=== PATIENT | female | born 1985 | race Caucasian/White ===

== ENCOUNTER 2018-07-24 09:53 | Inpatient (IN) | payer OTHER ==
[~2018-07-24] VITALS: Ht 175.3 cm; Wt 76.2 kg
[2018-07-24] VITALS (9 sets, daily range): BP systolic 85–113; BP diastolic 52–65
[2018-07-24] MEDS ORDERED: IV NORMAL SALINE 1,000ML 1,000 ML IV ONE ×3 (10:15→12:45)
[2018-07-24] MEDS ORDERED: ALBU8.5H8 INH (10:27)
[2018-07-24] MEDS ORDERED: CITA10TA8 PO (10:27)
[2018-07-24] MEDS ORDERED: MONT10TA9 PO (10:27)
[2018-07-24] MEDS ORDERED: FLUT1DIS IH (10:27)
--- NOTE | 2018-07-24 10:34 | RAD ---
CHEST PA LATERAL Clinical indications: Shortness of air, COUGH COMPARISON: None available. Findings: There is a right middle lobe lung infiltrate. No pleural effusion or pulmonary edema or lung mass or pneumothorax is seen. The heart size, pulmonary vasculature, mediastinum and both dorian are unremarkable. The osseous structures appear intact. Impression: Right middle lobe lung infiltrate. Electronically signed by: Pop Tracy MD (07/24/2018 10:30 AM) [facility]
--- NOTE | 2018-07-24 10:38 | PHYS DOC ---
Adult General Chief Complaint Chief Complaint: OTHER COMPLAINTS HPI HPI 33-year-old female presents with cough, dizziness, and near syncope. Patient states that after she dropped her kids off for school she was driving home began to feel dizzy and as though she might pass out. She states that she saw some black spots, but did not pass out. She stated having a "low-grade" fever at home. No fever in the ED. She has had a cough for several days and is concerned about having bronchitis. Patient has a history of asthma for which she takes preventative medications daily such as Advair and Singulair. She has not been using her albuterol because she has not felt like she needed it. Her kids have had respiratory illnesses at home. The patient has heightened concern because she has immune deficiencies. The extent and type of deficiency has not been fully determined yet. She is supposed to see a specialist at [facility] in August. She denies nausea, vomiting or diarrhea. Review of Systems Review of Systems Constitutional: Fever [] Eyes: Denies change in visual acuity, redness, or eye pain [] HENT: Denies nasal congestion or sore throat [] Respiratory: Cough [] Cardiovascular: No additional information not addressed in HPI [] GI: abdominal pain[] : Denies dysuria or hematuria [] Musculoskeletal: Denies back pain or joint pain [] Integument: Denies rash or skin lesions [] Neurologic: Denies headache, focal weakness or sensory changes. Dizziness [] Endocrine: Denies polyuria or polydipsia [] All other systems were reviewed and found to be within normal limits, except as documented in this note. Current Medications Current Medications Current Medications Medications (Trade) Dose Ordered Sig/Leander Start Time Stop Time Status Last Admin Dose Admin Sodium Chloride 1,000 ml @ 1,000 mls/hr 1X ONCE 07/24/18 10:15 07/24/18 11:14 UNV Allergies Allergies Allergies Coded Allergies Type Severity Reaction Last Updated Verified Sulfa (Sulfonamide Antibiotics) Allergy Unknown 07/24/18 Yes azithromycin Allergy Unknown 07/24/18 Yes cefaclor Allergy Unknown 07/24/18 Yes erythromycin base Allergy Unknown 07/24/18 Yes sulfisoxazole Allergy Unknown 07/24/18 Yes Physical Exam Physical Exam Constitutional: Well developed, well nourished, mild distress, non-toxic appearance. [] HENT: Normocephalic, atraumatic, bilateral external ears normal, oropharynx moist, no oral exudates, nasal congestion [] Eyes: PERRLA, EOMI, conjunctiva normal, no discharge. [] Neck: Normal range of motion, no tenderness, supple, no stridor. [] Cardiovascular:Heart rate regular rhythm, no murmur [] Lungs & Thorax: Bilateral breath sounds clear to auscultation [] Abdomen: Bowel sounds normal, soft, no tenderness, no masses, no pulsatile masses. [] Skin: Warm, dry, no erythema, no rash. [] Back: No tenderness, no CVA tenderness. [] Extremities: No tenderness, no cyanosis, no clubbing, ROM intact, no edema. [] Neurologic: Alert and oriented X 3, normal motor function, normal sensory function, no focal deficits noted. [] Psychologic: Affect normal, judgement normal, mood normal. [] EKG EKG [] Radiology/Procedures Radiology/Procedures [] Course & Med Decision Making Course & Med Decision Making Pertinent Labs and Imaging studies reviewed. (See chart for details) The patient's labs are remarkable for a left shift without an increased white blood cell count. Her white count is 4.0. Her platelets are low at 85. On arrival the patient had a low blood pressure. She did not have a fever. We gave her 1 L normal saline, she continues to have blood pressures in the 90s over 50s. She has now developed a fever of 101 and her heart rate is increased to 120. Her chest x-ray shows a right middle lobe infiltrate. She now meets the criteria for sepsis. I have additionally ordered another liter normal saline, blood cultures, lactic acid, UA, and 750 mg of levofloxacin IV. The patient has had a history of sensitivities to cephalosporins causing rash as well as intolerance of azithromycin. I will discuss the patient with the hospitalist and have her admitted. I spoke with Dr. Flores and he has agreed with the treatment with level ofloxacin and he will admit the patient to the ICU. Greater than 35 minutes of critical care time was performed on this patient including but not limited to: consultation with other physicians, interpreting laboratory results, interpreting imaging, medication decision making. [] Dragon Disclaimer Dragon Disclaimer This electronic medical record was generated, in whole or in part, using a voice recognition dictation system. Departure Departure: Referrals: MAGDALENE STODDARD MD (PCP) ALYSA CUNNINGHAM DO Jul 24, 2018 10:38
[2018-07-24 10:41] LABS: BASO % 1 % (0-3); EOS % 0 % (0-3); HEMATOCRIT 40.7 % (36.0-47.0); HEMOGLOBIN 14.1 g/dL (12.0-15.5); LYMPH # 0.4 x10^3/uL (1.0-4.8); LYMPH % 9 % (24-48); MEAN CORPUSCULAR HEMOGLOBIN 30 pg (25-35); MEAN CORPUSCULAR HGB CONC 35 g/dL (31-37); MEAN CORPUSCULAR VOLUME 85 fL (79-100); MONO # 0.2 x10^3/uL (0.0-1.1); MONO % 5 % (0-9); NEUT # 3.4 x10^3uL (1.8-7.7); NEUT % 85 % (31-73); PLATELET COUNT 85 x10^3/uL (140-400); RED BLOOD COUNT 4.76 x10^6/uL (3.50-5.40); RED CELL DISTRIBUTION WIDTH 13.4 % (11.5-14.5)
[2018-07-24 10:59] LABS: ALBUMIN 3.7 g/dL (3.4-5.0); ALBUMIN/GLOBULIN RATIO 1.6 (1.0-1.7); CALCIUM 8.4 mg/dL (8.5-10.1); GFR 63.1; POTASSIUM 3.8 mmol/L (3.5-5.1); TOTAL BILIRUBIN 0.4 mg/dL (0.2-1.0)
[2018-07-24] MEDS ORDERED: ONDANSETRON PF 4 MG/2 ML VIAL. IV PRN (11:45)
[2018-07-24] MEDS ORDERED: ACETAMINOPHEN 500 MG TABLET PO ONE ×3 (11:45→12:00)
[2018-07-24] MEDS ORDERED: ACETAMINOPHEN 325 MG TABLET PO PRN (11:45)
[2018-07-24 11:51] LABS: CLARITY,URINE HAZY; COLOR,URINE YELLOW
[2018-07-24 11:52] LABS: BACTERIA,URINE FEW /HPF (0-FEW); BILIRUBIN,URINE NEG (NEG); GLUCOSE,URINE NEG (NEG); NITRITE,URINE NEG (NEG); RBC,URINE OCC /HPF (0-2); SQUAMOUS EPITHELIAL CELL,UR MOD /LPF; UROBILINOGEN,URINE 0.2 mg/dL (0.2 mg/dL)
[2018-07-24] MEDS ORDERED: ALBUTEROL SULFATE 2.5 MG/3 ML NEBU. NEB PRN (13:15)
[2018-07-24] MEDS ORDERED: ALBUTEROL SULFATE 8GM INHALER. INH PRN (13:15)
--- NOTE | 2018-07-24 13:30 | NUR ---
The patient, RAFAEL BARTON, 33 y/o, F admitted by TAMMY CARRILLO MD, was given written information regarding hospital policies, unit procedures and contact persons. Valuables were checked and left in room.
[2018-07-24] MEDS: IBUPROFEN 600 MG TABLET. PO PRN ×2 (15:36→21:54)
[2018-07-24] MEDS: IV NORMAL SALINE 1,000ML 1,000 ML IV SCH ×2 (17:22→23:18)
[2018-07-24] MEDS ORDERED: MAGNESIUM SULFATE 2GM 50 ML IV ONE (20:00)
[2018-07-24] MEDS: MAGNESIUM SULFATE 1GM 100 ML IV SCH ×2 (20:12→21:17)
[2018-07-24] MEDS: MONTELUKAST 10 MG TABLET. PO SCH (20:27)
[2018-07-24] MEDS ORDERED: POTASSIUM CHLORIDE 20 MEQ TABLET.ER. PO ONE (21:00)
[2018-07-25] VITALS (15 sets, daily range): BP systolic 90–114; BP diastolic 55–72
[2018-07-25] MEDS ORDERED: FLUT1DIS3 IH (01:36)
[2018-07-25 06:00] LABS: BASO % 0 % (0-3); EOS % 0 % (0-3); HEMATOCRIT 34.1 % (36.0-47.0); HEMOGLOBIN 11.8 g/dL (12.0-15.5); LYMPH # 0.6 x10^3/uL (1.0-4.8); LYMPH % 15 % (24-48); MEAN CORPUSCULAR HEMOGLOBIN 30 pg (25-35); MEAN CORPUSCULAR HGB CONC 35 g/dL (31-37); MEAN CORPUSCULAR VOLUME 86 fL (79-100); MONO # 0.2 x10^3/uL (0.0-1.1); MONO % 5 % (0-9); NEUT # 3.3 x10^3uL (1.8-7.7); NEUT % 79 % (31-73); PLATELET COUNT 69 x10^3/uL (140-400); RED BLOOD COUNT 3.95 x10^6/uL (3.50-5.40); RED CELL DISTRIBUTION WIDTH 13.4 % (11.5-14.5); WHITE BLOOD COUNT 4.2 x10^3/uL (4.0-11.0)
[2018-07-25 06:14] LABS: CALCIUM 7.2 mg/dL (8.5-10.1); CREATININE 0.7 mg/dL (0.6-1.0); GFR 95.2; POTASSIUM 3.9 mmol/L (3.5-5.1)
[2018-07-25] MEDS ORDERED: BUDESONIDE 0.5 MG/2 ML NEBU NEB SCH (08:00)
[2018-07-25] MEDS ORDERED: ALBUTEROL SULFATE 2.5 MG/3 ML NEBU. NEB SCH (08:00)
[2018-07-25] MEDS ORDERED: IPRATRPIUM/ALBUTEROL 0.5/2.5MG 3 ML NEBU. ONE (08:01)
[2018-07-25] MEDS: IV NORMAL SALINE 1,000ML 1,000 ML IV SCH ×2 (08:03→14:54)
[2018-07-25] MEDS: CITALOPRAM 10 MG TABLET. PO SCH (08:03)
[2018-07-25] MEDS: guaiFENesin DM 600/30MG 1 TAB TAB.ER.12H PO SCH ×2 (08:03→20:01)
--- NOTE | 2018-07-25 08:20 | NUR ---
PT is feeling better today. PT is able to verbalize understanding of poc. Sandeep Foley
[2018-07-25] MEDS: IPRATRPIUM/ALBUTEROL 0.5/2.5MG 3 ML NEBU. NEB SCH ×2 (13:44→20:34)
[2018-07-25] MEDS: IBUPROFEN 600 MG TABLET. PO PRN (14:53)
--- NOTE | 2018-07-25 14:54 | HP ---
ADMIT DATE: 07/25/2018 HISTORY OF PRESENT ILLNESS: The patient is a 33-year-old female patient, who came to the Emergency Room with complaint of cough, dizziness, and near syncope. She states after she dropped her kids all for school, she was driving home, began to feel dizzy and as though she might pass out. She states that she saw some black spots, but did not pass out. She started having low grade fever at home. By the time she arrived to the Emergency Room, she had no fever, but she has had cough for several days and she is concerned about having bronchitis. The patient is known to have history of bronchial asthma for which she takes preventative medicine daily as Advair and Singulair. She has not been using her albuterol because she has not felt like she needs it. Her kids also had some upper respiratory tract infection at home. She has heightened concerned because she has immune deficiency, back stent and type deficiency has not been fully determined yet. She is supposed to see a specialist at [facility] in August. She denied any nausea, vomiting. On questioning her further she apparently was diagnosed with ITP in 2010 and was treated at that time with prednisone as well as an intravenous immunoglobulin. She also received treatment with rituximab. The last time she received treatment was in 07/2017. She also claimed that she was treated with chemotherapy, the nature of which is not very clear. I attempted to talk to her customer success director in [place], [place], Dr. Janice Ervin. Unfortunately, she was not in her office, so I did speak with Dr. Vivian Perales regarding the finding of her lab work. PAST MEDICAL HISTORY: Significant for immune thrombocytopenic purpura, bronchial asthma apparently was severe and at the age of 10 she was intubated and was admitted to the ICU. 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 PAST SURGICAL HISTORY: Significant for appendectomy, cholecystectomy, three foot surgery and 3 right hand surgery for ganglion cyst removal. ALLERGIES: She is allergic to CECLOR, AZITHROMYCIN, SULFA DRUGS as well as . MEDICATIONS: She is currently on following medications at home. She is on Singulair 10 mg at bedtime, Advair Diskus 250/50 one puff twice a day. She also on albuterol as needed and she is on Celexa 20 mg once a day. She apparently has intrauterine device. She apparently has had mammogram and ultrasound of the breast done at [facility], which is unremarkable; however, her primary care physician on examining her discovered a nodule in her breast for which she is supposed to be seen at [facility]. FAMILY HISTORY: She has 2 brothers, 1 older and 1 younger. One stillborn sister. SOCIAL HISTORY: She is , has 2 sons and 1 daughter. She does not smoke, does drink alcohol occasionally. Does not use any drugs. 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 REVIEW OF SYSTEMS: The patient denied any blurring of vision, cataract, glaucoma or macular degeneration, but she is known to have keratoconus and astigmatism. Denied any earache, tinnitus or sensorineural deafness. Denied any nosebleeds, but did complain of stuffy nose, but no postnasal drip. Denied any sore throat, sore tongue, toothache, hoarseness of voice or difficulty swallowing. She denied any nausea, vomiting. Did complain of diarrhea, but no constipation. She has denied any hematemesis, melena or hematochezia. Denied any dysuria, frequency, or hematuria. She denied any chest pain. Did complain of shortness of breath and cough, but no orthopnea or paroxysmal nocturnal dyspnea. Denied any chills, rigors, or fever. PHYSICAL EXAMINATION: GENERAL: On arrival to the Emergency Room, she looked well and was clearly in no apparent. There is no pallor, jaundice, cyanosis or thyromegaly. No jugular venous distention. No limb edema. VITAL SIGNS: Her heart rate was slightly up at 125, blood pressure was 95/61, temperature was 100.5, respiratory rate was 22 and oxygen saturation was 99% on room air. HEAD, EYES, EARS, NOSE AND THROAT: Showed normocephalic, atraumatic. NECK: Supple. HEART: Showed normal first and second heart sounds with no gallop, rub or murmur. CHEST: Clear to auscultation. No crepitation or rhonchi. ABDOMEN: Distended, soft, nontender. NEUROLOGIC: She was awake, alert, responding appropriately. All cranial nerves intact. EXTREMITIES: She moves extremities without difficulty. Examination of the extremities showed no clubbing, cyanosis, or edema. She was extensively investigated in the Emergency Room. LABORATORY DATA: Her white cell count was 4000, hemoglobin 14, hematocrit 40, MCV 86 and platelet count of 85,000 with normal manual differential. Her chemistry showed a serum sodium 137, potassium 3.8, chloride 103, bicarbonate 28, anion gap of 6, BUN 12, creatinine 1, estimated GFR was 63 mL per minute. Her glucose was 98. Lactic acid was 0.7, calcium was 8.4, magnesium was 1.5. Total bilirubin, AST, ALT, alkaline phosphatase were normal. Her total protein was 6, albumin 3.7. Her blood was sent for culture and sensitivity and was seen actually urine for legionella antigen as well as Streptococcus antigen. Her chest x-ray showed that there is right middle lobe lung infiltrate. No pleural effusion, no pulmonary edema or lung mass or pneumothorax is seen. The heart size and pulmonary vasculature, mediastinum and both dorian are unremarkable. The osseous structures appeared intact. ASSESSMENT AND PLAN: The patient was admitted to the ICU, given that she is allergic to SULFA AND CEFACLOR and AZITHROMYCIN, we started her on IV Levaquin. We will continue with the antibiotic. All her other medications as well as IV fluid and DuoNeb 4 times a day. We will monitor her response clinically and decide further management accordingly. The final admitting diagnosis probably community-acquired pneumonia with right middle lobe infiltrate, immunoglobulin deficiency, probably common variable immune deficiency and thrombocytopenia, bronchial asthma and she also stated that she has Otf thyroiditis for which obviously we will check her thyroid function test. TAMMY CARRILLO MD DR: PHILIP/lilia JOB#: [id number] / [id number]
[2018-07-25] MEDS ORDERED: LOPERAMIDE 2 MG CAPSULE PO PRN (16:00)
[2018-07-25] MEDS ORDERED: ACETAMINOPHEN 325 MG TABLET PO ONE (18:04)
[2018-07-25] MEDS: MONTELUKAST 10 MG TABLET. PO SCH (20:01)
[2018-07-25 22:09] LABS: IMMUNOGLOBULIN A <5 mg/dL (87-352); IMMUNOGLOBULIN M 32 mg/dL (26-217)
[2018-07-25] MEDS: ACETAMINOPHEN 325 MG TABLET PO PRN (23:15)
--- NOTE | 2018-07-26 00:47 | PN ---
DATE: 07/25/2018 SUBJECTIVE: The patient was admitted yesterday with community-acquired pneumonia. Her chest x-ray showed that she has right middle lobe infiltrate and was admitted to the ICU. She also has what seems to be variable immune deficiency. Her total IgG was all her immunoglobulin alone. Her last measurement was done on 05/11/2018. She apparently was treated before with immunoglobulin. She has a history of ITP and given that she is allergic to ZITHROMAX and CEFACLOR, we started her on IV Levaquin. When I saw her today, she was sitting slightly propped up in bed, in no apparent distress. She continues to have cough, this seems to be productive, but denies any chest pain or shortness of breath. OBJECTIVE: GENERAL: When I examined her, she looked well and was clearly in no apparent respiratory distress. No pallor, jaundice, cyanosis, or thyromegaly. No jugular venous distention. No limb edema. VITAL SIGNS: Her heart rate was 84, blood pressure was 90/56, temperature was 98.9, respiratory rate was 18 and oxygen saturation was 95% on room air. HEAD, EYES, EARS, NOSE, AND THROAT: Showed that she is normocephalic, atraumatic. NECK: Supple. HEART: Showed normal first and second heart sounds with no gallop, rub, or murmur. CHEST: Clear to auscultation. No crepitation or rhonchi. ABDOMEN: Distended, soft, nontender. No guarding or rigidity. No organomegaly. Hernial orifice intact. Bowel sounds normal. NEUROLOGIC: She was awake, alert, responding appropriately. All cranial nerves intact. She moves extremities without difficulty. She ambulates without assistance or assistive devices. Her intake over the last 24 hours was 5300, output was 1400. LABORATORY DATA: Her lab work this morning showed a white cell count of 4200, hemoglobin 11.8, hematocrit 34, MCV 86, and a platelet count of 69,000 with normal manual differential. Her chemistry showed serum sodium 141, potassium 3.9, chloride 109, bicarbonate 25, anion gap of 7, BUN 6, creatinine 0.7, estimated GFR was 95 mL per minute. Her glucose was 90, calcium was 7.2, magnesium was 1.5. ASSESSMENT: 1. Community-acquired pneumonia with right middle lobe infiltrate. 2. Variable immune deficiency syndrome. 3. Idiopathic thrombocytopenic purpura. 4. Bronchial asthma. 5. Otf's thyroiditis. PLAN: My plan is to continue with IV Levaquin. I did speak with Dr. Vivian Perales, the clamshell engineer/oncologist at [facility] regarding her immunoglobulin deficiency and the plan was to give her 400 mg/kg injection once and after discharge, she obviously needs to be seen and follow up with an wirer helper at [facility]. TAMMY CARRILLO MD DR: PHILIP/lilia JOB#: [id number] / [id number]
[2018-07-26 03:55] VITALS: BP 132/80
[2018-07-26] MEDS: IV NORMAL SALINE 1,000ML 1,000 ML IV SCH ×2 (04:05→16:20)
[2018-07-26] MEDS: IPRATRPIUM/ALBUTEROL 0.5/2.5MG 3 ML NEBU. NEB SCH ×4 (05:25→20:51)
[2018-07-26 06:17] LABS: HEMOGLOBIN 12.4 g/dL (12.0-15.5); RED BLOOD COUNT 4.16 x10^6/uL (3.50-5.40); RED CELL DISTRIBUTION WIDTH 13.7 % (11.5-14.5)
[2018-07-26 06:31] LABS: ALBUMIN 3.1 g/dL (3.4-5.0); ALBUMIN/GLOBULIN RATIO 1.2 (1.0-1.7); CREATININE 0.8 mg/dL (0.6-1.0); GFR 81.6; POTASSIUM 3.4 mmol/L (3.5-5.1); TOTAL BILIRUBIN 0.3 mg/dL (0.2-1.0); TOTAL PROTEIN 5.6 g/dL (6.4-8.2)
[2018-07-26] MEDS: guaiFENesin DM 600/30MG 1 TAB TAB.ER.12H PO SCH ×2 (08:28→20:59)
[2018-07-26] MEDS: CITALOPRAM 10 MG TABLET. PO SCH (08:28)
[2018-07-26] MEDS ORDERED: IMMUNE GLOBULIN GAMMA IV ONE (09:00)
[2018-07-26] MEDS ORDERED: [UNRECOGNIZED DRUG - OTHER] IV ONE (09:00)
--- NOTE | 2018-07-26 09:50 | NUR ---
IGG infusion started at this time, infusion started at 30/hr. Vitals obtained and will check every 15 minutes until rate achieves to 125/hr. Patient tolerating well at this time. Pt concerned about platelets and is educated on IGG, pneumonia and platelet levels. Patient states she is feeling better today. Plan is to continue IV antibiotics and IGG infusion today. No elevated temps, vitals remain stable.
[2018-07-26] MEDS ORDERED: diphenhydrAMINE HCL 25 MG CAPSULE PO PRN (11:15)
[2018-07-26 11:19] VITALS: BP 101/64
[2018-07-26] MEDS ORDERED: methylPREDNISolone SOD SUCC PF 40 MG/ML VIAL. IV ONE (11:30)
[2018-07-26] MEDS: ACETAMINOPHEN 325 MG TABLET PO PRN ×2 (11:32→20:59)
[2018-07-26] MEDS ORDERED: POTASSIUM CHLORIDE 20 MEQ TABLET.ER. PO ONE (12:00)
[2018-07-26] MEDS ORDERED: methylPREDNISolone SOD SUCC PF 125 MG/2 ML VIAL. IV ONE (12:00)
--- NOTE | 2018-07-26 15:00 | NUR ---
IGG infusion completed, patient tolerated well and vitals remained stable.
[2018-07-26 15:48] VITALS: BP 124/74
[2018-07-26 19:27] VITALS: BP 127/81
[2018-07-26] MEDS: MONTELUKAST 10 MG TABLET. PO SCH (20:59)
[2018-07-26] MEDS: PANTOPRAZOLE IV 40 MG VIAL. IVP SCH (22:07)
[2018-07-26 22:55] VITALS: BP 92/55
--- NOTE | 2018-07-27 00:17 | PN ---
DATE: 07/26/2018 SUBJECTIVE: The patient is resting slightly propped up in bed, in no apparent distress. She is feeling generally much better, had a shower this morning, has had no fever. She is afebrile. She continued to have some cough, but denied any other complaint. PHYSICAL EXAMINATION: GENERAL: When I examined her, she looked somewhat pale, no jaundice, cyanosis, or thyromegaly. No jugular venous distension. No limb edema. VITAL SIGNS: Her heart rate was 84, her blood pressure actually was 132/80, temperature was 98, respiratory rate was 16 and oxygen saturation was 99%. HEAD, EYES, EARS, NOSE AND THROAT: Normocephalic, atraumatic. NECK: Supple. HEART: Showed normal first and second heart sounds. No gallop, rub or murmur. CHEST: Clear to auscultation. No crepitation or rhonchi. ABDOMEN: Distended, soft, nontender. No guarding or rigidity. No organomegaly. Hernial orifice intact. Bowel sounds normal. NEUROLOGIC: She is awake, alert, and responding appropriately. Cranial nerves intact. She moves all extremities without difficulty. She ambulates without assistance or assistive devices. Her intake was 6200, output was 1400. LABORATORY DATA: As of this morning, her IgA is less than 5 and IgM was 32 with normal range between 26 and 217. Her white cell count is slightly down at 2000, hemoglobin 12.4, hematocrit 36, MCV 87 and platelet count of 62,000. Her chemistry showed a serum sodium 141, potassium 3.4, chloride 108, bicarbonate 24, anion gap of 9, BUN 6, creatinine 0.8, estimated GFR was 82 mL per minute, her glucose was 99, and calcium was 8. Total bilirubin, AST, ALT, and alkaline phosphatase were normal. Total protein was 5.6, albumin 3.1. Her nasal screen for MRSA by PCR was negative. ASSESSMENT: 1. Community-acquired pneumonia with right middle lobe infiltrate, improving. 2. Common variable immune deficiency syndrome for which she will get immunoglobulin, intravenous immunoglobulin 400 mg/kg that became available today. 3. Idiopathic thrombocytopenic purpura with the platelet count slightly trending down, but still at the safer level of 62,000. 4. Bronchial asthma, clinically stable. 5. Otf's thyroiditis, for which we checked her TSH. However, the result of which is still pending at the time of this dictation. 6. Hypokalemia for which I will start her on potassium supplement and repeat all her labs tomorrow and decide on further management accordingly. If she remains stable, she can be discharged tomorrow and she can follow up with the Hematology/Oncology as well as field service specialist. TAMMY CARRILLO MD DR: PHILIP/lilia JOB#: [id number] / [id number]
[2018-07-27 05:12] VITALS: BP 106/69
[2018-07-27] MEDS: IPRATRPIUM/ALBUTEROL 0.5/2.5MG 3 ML NEBU. NEB SCH ×2 (05:25→09:16)
[2018-07-27] MEDS: IV NORMAL SALINE 1,000ML 1,000 ML IV SCH (05:44)
[2018-07-27 06:09] LABS: IGG1 120 mg/dL (248-810); IGG2 47 mg/dL (130-555); IGG3 14 mg/dL (15-102); IGG4 1 mg/dL (2-96); TOTAL IGG 203 mg/dL (700-1600)
[2018-07-27 06:21] LABS: BASO % 0 % (0-3); EOS % 0 % (0-3); HEMOGLOBIN 13.3 g/dL (12.0-15.5); LYMPH # 0.5 x10^3/uL (1.0-4.8); LYMPH % 18 % (24-48); MEAN CORPUSCULAR HEMOGLOBIN 29 pg (25-35); MEAN CORPUSCULAR HGB CONC 34 g/dL (31-37); MEAN CORPUSCULAR VOLUME 86 fL (79-100); MONO # 0.2 x10^3/uL (0.0-1.1); MONO % 6 % (0-9); NEUT # 2.2 x10^3uL (1.8-7.7); NEUT % 77 % (31-73); PLATELET COUNT 82 x10^3/uL (140-400); RED BLOOD COUNT 4.53 x10^6/uL (3.50-5.40); RED CELL DISTRIBUTION WIDTH 13.4 % (11.5-14.5); WHITE BLOOD COUNT 2.9 x10^3/uL (4.0-11.0)
[2018-07-27 06:26] LABS: ALBUMIN 3.4 g/dL (3.4-5.0); ALBUMIN/GLOBULIN RATIO 0.9 (1.0-1.7); CALCIUM 9.2 mg/dL (8.5-10.1); CREATININE 0.7 mg/dL (0.6-1.0); GFR 95.2; POTASSIUM 3.8 mmol/L (3.5-5.1); TOTAL BILIRUBIN 0.4 mg/dL (0.2-1.0)
[2018-07-27] MEDS: guaiFENesin DM 600/30MG 1 TAB TAB.ER.12H PO SCH (08:10)
[2018-07-27] MEDS: PANTOPRAZOLE IV 40 MG VIAL. IVP SCH (08:10)
[2018-07-27] MEDS: CITALOPRAM 10 MG TABLET. PO SCH (08:10)
[2018-07-27] MEDS: IBUPROFEN 600 MG TABLET. PO PRN (08:14)
[2018-07-27 10:25] LABS: IMMUNOGLOBULIN G SEE IGG SUB
[2018-07-27 11:01] VITALS: BP 95/61
--- NOTE | 2018-07-27 11:04 | NUR ---
Patient feeling much better today, states she is hoping to go home now that her platelets have increased. Pt up for breakfast and to shower. No SOA or dyspnea noted. Awaiting for Dr. Flores.
--- NOTE | 2018-07-27 11:49 | NUR ---
Dr. Flores here at this time, plan is to discharge home with PO Levaquin. Referral will be given to Hematoligist for [facility]. IV discontinued at this time.
[2018-07-27] MEDS ORDERED: LEVO750T31 PO (11:50)
--- NOTE | 2018-07-27 12:31 | NUR ---
Patient discharged at this time, ambulated off unit with father. Belongings and scripts given to patient. IV discontinued at this time.
[2018-07-27 17:11] LABS: THYROXINE 6.9 ug/dL (4.5-12.0)
[2018-07-27] MEDS ORDERED: PANTOPRAZOLE 40 MG TABLET. PO SCH ×2 (21:00)
== END 2018-07-27 12:29 | disposition home or self-care (01) | DRG 871 ==
LOC: ER 09:53 → ICU 13:21 → 1 SOUTH 07-26 17:47
PROVIDERS: ADMIT Internal Medicine; ATTEND Internal Medicine
DX: A41.9 Sepsis, unspecified organism (principal); J18.9 Pneumonia, unspecified organism; D83.9 Common variable immunodeficiency, unspecified; D69.3 Immune thrombocytopenic purpura; E06.3 Autoimmune thyroiditis; E87.6 Hypokalemia; J45.909 Unspecified asthma, uncomplicated; Z81.3 Family history of other psychoactive substance abuse and dependence; Z88.1 Allergy status to other antibiotic agents; Z88.2 Allergy status to sulfonamides; Z92.21 Personal history of antineoplastic chemotherapy; Z79.899 Other long term (current) drug therapy
CPT/HCPCS: 36415; 71046; 80048; 80053; 81001; 82784; 82787; 83605; 83735; 84436; 84439; 84443; 84480; 85025; 85027; 87040; 87070; 87086; 87205; 87449; 87641; 94640; 96361; 96365; 96366; C9113; J1459; J1956; J2930; J3475; J7620; Q0163; 99291-25; J7030

== ENCOUNTER 2019-08-26 18:22 | Emergency (ER) | payer OTHER ==
[~2019-08-26 18:22] MED LIST: ALBU2.5V8 INH; CITA10TA8 PO; FLUT1DIS IH; FLUT1DIS3 IH; LEVO750T31 PO; MONT10TA80 PO
--- NOTE | 2019-08-26 19:14 | PHYS DOC ---
Past History Past Medical History: Asthma, Immunosuppression, Other Additional Past Medical Histor: ITP Past Surgical History: Appendectomy, Cholecystectomy, Tonsillectomy Alcohol Use: Occasionally Drug Use: None Adult General Chief Complaint Chief Complaint: ANKLE PROBLEM HPI HPI Patient is a 34-year-old female 2 days status post a half marathon right Achilles pain as well as left knee pain mild to moderate worse with palpation hard to walk on her right Achilles Allergies Allergies Allergies Coded Allergies Type Severity Reaction Last Updated Verified Sulfa (Sulfonamide Antibiotics) Allergy Intermediate 07/26/18 Yes azithromycin Allergy Intermediate 07/26/18 Yes cefaclor Allergy Intermediate 07/26/18 Yes erythromycin base Allergy Intermediate 07/26/18 Yes sulfisoxazole Allergy Intermediate 07/26/18 Yes Physical Exam Physical Exam Constitutional: Well developed, well nourished, no acute distress, non-toxic appearance. [] HENT: Normocephalic, atraumatic, bilateral external ears normal, oropharynx moist, no oral exudates, nose normal. [] Eyes: PERRLA, EOMI, conjunctiva normal, no discharge. [] Neck: Normal range of motion, no tenderness, supple, no stridor. [] Cardiovascular:Heart rate regular rhythm, no murmur [] Back: No tenderness, no CVA tenderness. [] Extremities: Left knee there is mild tenderness of the left joint line no swelling seen. Right Achilles is mild tenderness there the Marcus test is negative normal Psychologic: Affect normal, judgement normal, mood normal. [] Current Patient Data Vital Signs Vital Signs Date Time Temp Pulse Resp B/P (MAP) Pulse Ox O2 Delivery O2 Flow Rate FiO2 08/26/19 18:30 66 18 99 Room Air * None Blood Pressure Systolic * 126 mm Hg (100-140) Blood Pressure Diastolic * 88 mm Hg (60-100) Blood Pressure Mean * 101 mm Hg Pulse Rate * 66 beats per minute (60-90) Respiratory Rate * 18 breaths per minute (12-24) Oxygen Delivery Method * Room Air Bedside Pulse Oximetry * 99 % Treatment Prior to Arrival * No Complaint of Pain * Yes Pain Scale Type * Numeric Pain Assessment Label * Right * Pain Location Ankle EKG EKG [] Radiology/Procedures Radiology/Procedures [] Course & Med Decision Making Course & Med Decision Making Pertinent Labs and Imaging studies reviewed. (See chart for details) []Suspect Achilles tendinitis Moo wrap and crutches return impressions discussed avoid running for at least a week follow-up with physical therapy as needed Mata Disclaimer Mata Disclaimer This electronic medical record was generated, in whole or in part, using a voice recognition dictation system. Departure Departure: Impression: Primary Impression: Achilles tendinitis Disposition: HOME, SELF-CARE Condition: STABLE Patient Instructions: Achilles Tendinitis FRANKIE CASTILLO MD Aug 26, 2019 19:14
== END 2019-08-26 19:05 | disposition home or self-care (01) ==
LOC: ER 18:22
DX: M76.61 Achilles tendinitis, right leg (principal); M25.562 Pain in left knee; J45.909 Unspecified asthma, uncomplicated; Z88.2 Allergy status to sulfonamides; Z88.1 Allergy status to other antibiotic agents
CPT/HCPCS: 99283